=== PATIENT | female | born 1975 | race Asian ===

== ENCOUNTER 2017-03-16 01:09 | Emergency (ER) | payer OTHER ==
[~2017-03-16] VITALS: Ht 154.9 cm; Wt 61.2 kg
[2017-03-16 01:14] VITALS: BP 147/100
--- NOTE | 2017-03-16 01:31 | NUR ---
PT TAKEN TO BED 3
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
--- NOTE | 2017-03-16 01:55 | NUR ---
Dr. Joiner evaluating patient at bedside.
[2017-03-16 02:01] VITALS: BP 134/87
--- NOTE | 2017-03-16 02:01 | NUR ---
PATIENT ELOPED FROM FACILITY. DISCHARGE INSTRUCTIONS NOT GIVEN TO PATIENT. DR. GUERRA NOTIFIED.
== END 2017-03-16 02:01 | disposition left against medical advice (07) ==
LOC: MED 01:09
DX: L98.8 Other specified disorders of the skin and subcutaneous tissue (principal); Z91.018 Allergy to other foods
CPT/HCPCS: 99283